=== PATIENT | male | born 1990 | race Caucasian/White ===

== ENCOUNTER 2018-10-08 20:14 | Emergency (ER) | payer OTHER ==
[~2018-10-08] VITALS: Ht 190.5 cm; Wt 81.8 kg
[2018-10-08 20:18] VITALS: Ht 190.5 cm; Wt 81.8 kg
[2018-10-08] MEDS ORDERED: UNK ANTIDEPRESSANT (20:19)
[2018-10-08] MEDS ORDERED: XANAX0.5 MG PO (20:20)
[2018-10-08 23:44] VITALS: BP 122/77
== END 2018-10-08 23:47 | disposition home or self-care (01) ==
LOC: D.ER 20:14
DX: R51 Headache (principal); Y04.2XXA Assault by strike against or bumped into by another person, initial encounter; Y93.89 Activity, other specified; Y92.89 Other specified places as the place of occurrence of the external cause